=== PATIENT | male | born 1950 | race African-American/Black ===

== ENCOUNTER 2022-10-13 12:59 | Outpatient (CLI) | payer MEDICARE, OTHER | END 2022-10-13 13:00 | disposition home or self-care (01) | LOC: BICCT 12:59 | PROVIDERS: ATTEND Neurological Surgery | DX: M47.12 Other spondylosis with myelopathy, cervical region (principal); M47.812 Spondylosis without myelopathy or radiculopathy, cervical region; Z98.1 Arthrodesis status | CPT/HCPCS: 72125 ==